=== PATIENT | female | born 1970 | race Caucasian/White ===

== ENCOUNTER 2017-12-14 16:39 | Emergency (ER) | payer MEDICAID, OTHER ==
[2017-12-14 17:15] VITALS: BP 142/78; PULSE 90; RESP 18; TEMP 98.3; O2SAT 98
== END 2017-12-14 19:33 | disposition left against medical advice (07) ==
LOC: ED 16:39
DX: Z02.89 Encounter for other administrative examinations (principal); N93.9 Abnormal uterine and vaginal bleeding, unspecified